=== PATIENT | male | born 1945 | race Caucasian/White ===

== ENCOUNTER 2023-11-14 05:11 | Day surgery (SDC) | payer MEDICARE ==
[2023-11-08 09:45] LABS: BASOPHILS # (AUTO) 0.1 X10'3 (0-0.2); BASOPHILS % (AUTO) 0.9 % (0-1); EOSINOPHILS # (AUTO) 0.1 X10'3 (0-0.9); EOSINOPHILS % (AUTO) 1.2 % (0-6); LYMPHOCYTES # (AUTO) 1.5 X10'3 (1.1-4.8); LYMPHOCYTES % (AUTO) 18.5 % (21-51); MEAN CORPUSCULAR HEMOGLOBIN 28.7 PG (27.0-31.0); MEAN CORPUSCULAR HGB CONC 32.9 g/dL (33.0-36.5); MEAN CORPUSCULAR VOLUME 87.2 FL (78-98); MEAN PLATELET VOLUME 8.8 FL (7.4-10.4); MONOCYTES # (AUTO) 0.7 X10'3 (0-0.9); MONOCYTES % (AUTO) 8.8 % (2-12); NEUTROPHILS # (AUTO) 5.6 X10'3 (1.8-7.7); NEUTROPHILS % (AUTO) 70.6 % (42-75); PRE OP HEMATOCRIT 43.6 % (42.0-52.0); PRE OP HEMOGLOBIN 14.4 g/dL (14.0-17.9); PRE OP PLATELET COUNT 199 X10'3 (140-440); PRE OP WHITE BLOOD COUNT 7.9 10'3 (4.8-10.8); RED BLOOD COUNT 5.01 X10'6 (4.70-6.10); RED CELL DISTRIBUTION WIDTH 14.5 % (11.5-14.5)
[2023-11-08 10:01] LABS: ALBUMIN 3.6 G/DL (3.4-5.0); ALBUMIN/GLOBULIN RATIO 0.9 (1.1-1.5); ALKALINE PHOSPHATASE 47 IU/L (46-116); BLOOD UREA NITROGEN 18 MG/DL (7-18); BUN/CREATININE RATIO 14.6 (10.0-20.0); CALCIUM 8.8 MG/DL (8.5-10.1); CHLORIDE 106 MMOL/L (99-107); CREATININE 1.23 MG/DL (0.60-1.10); PRE OP ALT 24 U/L (30-65); PRE OP ANION GAP 4 (8-16); PRE OP AST 21 U/L (10-37); PRE OP BILIRUB, TOTAL 0.4 MG/DL (0.0-1.0); PRE OP GLUCOSE 79 MG/DL (70-104); PRE OP SODIUM 141 MMOL/L (135-145); TOTAL PROTEIN 7.4 G/DL (6.4-8.2); eGFR 57 ML/MIN
[~2023-11-14] VITALS: Ht 182.9 cm; Wt 97.7 kg
[2023-11-14] VITALS (22 sets, daily range): BP systolic 124–157; BP diastolic 60–77; PULSE 50–66; RESP 11–17; TEMP 97.9; O2SAT 93–100
[~2023-11-14 05:11] MED LIST: FLO0.4C PO; LEVO25TA7 PO; PRAV80TA3 PO; PRED5DRO3 EACHEYE; ROSU40TA22 PO; TIMO5DRO44 EACHEYE; ringers solution, lacted 1,000 ML IV SCH
[2023-11-14] MEDS ORDERED: famotidine 20mg tablet PO ONE (05:30)
[2023-11-14] MEDS ORDERED: cefazolin 2gm/D5W 100mL 100 ML IV ONE (05:30)
[2023-11-14] MEDS ORDERED: BUPIVAcaine/PF 2.5mg/ml (0.25%) 10ml vial ONE ×2 (06:41→06:50)
[2023-11-14] MEDS ORDERED: LIDOcaine 1% (10mg/ml)w/preservative inj. 20ml MDV ONE (06:41)
[2023-11-14] MEDS ORDERED: LIDOcaine 1% 30ml preserv. free vial ONE (06:50)
[2023-11-14] MEDS ORDERED: fentaNYL/PF 50MCG/1 ML 2ML syringe ONE (07:20)
[2023-11-14] MEDS ORDERED: propofol inj 20 ML IV ONE (07:22)
[2023-11-14] MEDS ORDERED: rocuronium 10mg/ml inj IV ONE (07:22)
[2023-11-14] MEDS ORDERED: LIDOcaine 2% (20mg/ml) 5ml vial ONE (07:22)
[2023-11-14] MEDS ORDERED: ringers solution, lacted 1,000 ML IV SCH (07:35)
[2023-11-14] MEDS ORDERED: ondansetron/PF 4mg/2ml inj IV PRN (07:35)
[2023-11-14] MEDS ORDERED: fentaNYL/PF 50MCG/1 ML 2ML syringe IV PRN (07:35)
[2023-11-14] MEDS ORDERED: morphine 2 MG/ML inj. syringe IV PRN (07:35)
[2023-11-14] MEDS ORDERED: sevoflurane 250ml liquid IH ONE (07:59)
[2023-11-14] MEDS ORDERED: tamsulosin 0.4mg capsule PO ONE (08:00)
[2023-11-14] MEDS ORDERED: LIDOcaine 1% 30ml preserv. free vial IJ ONE (08:30)
[2023-11-14] MEDS ORDERED: BUPIVAcaine/PF 2.5mg/ml (0.25%) 10ml vial IJ ONE (08:30)
[2023-11-14] MEDS ORDERED: acetaminophen 1,000mg/100ml IV 100 ML IV ONE (09:04)
[2023-11-14] MEDS ORDERED: glycopyrrolate 0.2mg/ml inj ONE (09:07)
[2023-11-14] MEDS ORDERED: ePHEDrine 50MG/ML INJ. ONE (09:07)
[2023-11-14] MEDS ORDERED: ondansetron/PF 4mg/2ml inj ONE (09:07)
[2023-11-14] MEDS ORDERED: dexamethasone sod phosphate 4mg/ml inj. ONE (09:07)
[2023-11-14] MEDS ORDERED: neostigmine methylsulfate 1 MG/ML 10ml vial ONE (09:07)
[2023-11-14] MEDS ORDERED: HYDROcodone/acetaminophen 5mg/325mg tablet PO PRN (09:20)
[2023-11-14] MEDS ORDERED: LidoCAINE 2% Topical Jelly 11mL syringe MM ONE (13:20)
== END 2023-11-14 13:58 | disposition home or self-care (01) ==
LOC: PAS 05:11 → EDSEX 07:30 → PAS 13:58
PROVIDERS: ATTEND Surgery
DX: K40.90 Unilateral inguinal hernia, without obstruction or gangrene, not specified as recurrent (principal); K42.9 Umbilical hernia without obstruction or gangrene; N40.0 Benign prostatic hyperplasia without lower urinary tract symptoms; H40.9 Unspecified glaucoma; E78.5 Hyperlipidemia, unspecified; Z87.891 Personal history of nicotine dependence; Z98.890 Other specified postprocedural states; Z85.51 Personal history of malignant neoplasm of bladder; Z79.899 Other long term (current) drug therapy; Z94.7 Corneal transplant status
CPT/HCPCS: 36415; 49591; 49650; 80053; 82948; 85025; 93005; C1781; J0131; J0690; J1100; J2270; J2405; J2704; J2710; J3010; J3490; J7030; J7120; Z7506; Z7508; Z7512; A4215; A4314; A4618